=== PATIENT | female | born 2000 | race Caucasian/White ===

== ENCOUNTER 2023-05-29 15:13 | Emergency (ER) | payer OTHER ==
[~2023-05-29] VITALS: Ht 170.2 cm; Wt 79.1 kg
[~2023-05-29 15:13] MED LIST: AMOXICILLIN 8751 TAB PO; BIRTH CONTROL PILLS
[2023-05-29 16:00] LABS: COLLECTION METHOD CLEAN CATCH
[2023-05-29 16:19] LABS: PH 5.5 (5.0-8.5); URINE APPEARANCE Cloudy (CLEAR/HAZY); URINE BACTERIA Moderate /hpf (NONE SEEN); URINE BLOOD 2+ (NEGATIVE); URINE COLOR Yellow (YELLOW); URINE GLUCOSE Negative (NEGATIVE); URINE KETONE Negative (NEGATIVE); URINE NITRATE Positive (NEGATIVE); URINE PROTEIN(semi-quant) TRACE (NEGATIVE); URINE UROBILINOGEN 0.2 E.U/dL (0.2-1.0)
[2023-05-29 17:52] VITALS: TEMP 100.2
[2023-05-29] MEDS ORDERED: Acetaminophen 325 MG TAB PO ONE (18:00)
[2023-05-29] MEDS ORDERED: NS 1,000 ML IV ONE (18:00)
[2023-05-29] MEDS ORDERED: cefTRIAXone 1 G in Water For Injection,Sterile 10 ML IV ONE (18:00)
[2023-05-29] MEDS ORDERED: Ketorolac 15 MG/ML VIAL IV ONE (18:00)
[2023-05-29 18:03] LABS: BASO % 0.5 % (0.0-2.0); EOS % 0.2 % (0.0-4.0); GRAN # 7.2 K/mm3 (1.4-6.5); GRAN % 86.9 % (42.2-75.2); HEMATOCRIT 43.4 % (37.0-47.0); HEMOGLOBIN 14.6 g/dl (12.5-16.0); LYMPH # 0.6 K/mm3 (1.2-3.4); LYMPH % 6.7 % (20.0-51.0); MEAN CELL VOLUME 99 fl (80.0-100.0); MEAN CORPUSCULAR HEMOGLOBIN 33 pg (27-31); MEAN CORPUSCULAR HGB CONC 34 g/dl (33.0-37.0); MEAN PLATELET VOLUME 10.3 fl (7.4-10.4); MONO # 0.4 K/mm3 (0.1-0.6); MONO % 5.3 % (1.7-9.3); PLATELET COUNT 225 K/mm3 (130-400); RED BLOOD COUNT 4.38 M/mm3 (4.10-5.30); REDCELL DISTRIBUTION WIDTH-CV 11.5 % (11.5-14.5)
[2023-05-29 18:15] LABS: ALBUMIN 3.8 gm/dL (3.5-5.0); BILIRUBIN,TOTAL 0.4 mg/dL (0.2-1.2); CALCIUM 9.1 mg/dL (8.4-10.2); CREATININE, serum 0.9 mg/dL (0.57-1.11); POTASSIUM 3.9 mmol/L (3.5-4.5); TOTAL PROTEIN 6.8 gm/dL (6.2-8.1)
[2023-05-29] MEDS ORDERED: VANTIN 200200 MG/TAB PO (19:11)
[2023-05-29 19:21] VITALS: BP 160/75; PULSE 100
== END 2023-05-29 19:23 | disposition home or self-care (01) ==
LOC: COL.ER 15:13
PROVIDERS: Emergency Medicine
DX: N12 Tubulo-interstitial nephritis, not specified as acute or chronic (principal); N39.0 Urinary tract infection, site not specified; M54.50 Low back pain, unspecified; W10.8XXA Fall (on) (from) other stairs and steps, initial encounter
CPT/HCPCS: J0696; J1885; J7030

== ENCOUNTER 2023-05-31 11:38 | Emergency (ER) | payer OTHER ==
[~2023-05-31] VITALS: Ht 170.2 cm; Wt 79.5 kg
[~2023-05-31 11:38] MED LIST changes: +VANTIN 200200 MG/TAB PO
[2023-05-31 11:52] VITALS: TEMP 98.2
[2023-05-31] MEDS ORDERED: Ketorolac 30 MG/ML VIAL IV ONE (12:30)
[2023-05-31 13:05] LABS: COLLECTION METHOD CLEAN CATCH
[2023-05-31 13:23] LABS: BASO # 0.1 K/mm3 (0.0-0.2); BASO % 0.8 % (0.0-2.0); EOS # 0.1 K/mm3 (0.0-0.7); EOS % 1.1 % (0.0-4.0); GRAN # 5.2 K/mm3 (1.4-6.5); GRAN % 71.2 % (42.2-75.2); HEMATOCRIT 39.6 % (37.0-47.0); HEMOGLOBIN 13.5 g/dl (12.5-16.0); LYMPH # 1.2 K/mm3 (1.2-3.4); LYMPH % 15.8 % (20.0-51.0); MEAN CELL VOLUME 100 fl (80.0-100.0); MEAN CORPUSCULAR HEMOGLOBIN 34 pg (27-31); MEAN CORPUSCULAR HGB CONC 34 g/dl (33.0-37.0); MEAN PLATELET VOLUME 10.2 fl (7.4-10.4); MONO # 0.8 K/mm3 (0.1-0.6); PLATELET COUNT 174 K/mm3 (130-400); RED BLOOD COUNT 3.95 M/mm3 (4.10-5.30); REDCELL DISTRIBUTION WIDTH-CV 11.6 % (11.5-14.5)
[2023-05-31 13:30] LABS: ALBUMIN 3.2 gm/dL (3.5-5.0); BILIRUBIN,TOTAL 0.3 mg/dL (0.2-1.2); CALCIUM 9.2 mg/dL (8.4-10.2); CREATININE, serum 0.86 mg/dL (0.57-1.11); TOTAL PROTEIN 6.5 gm/dL (6.2-8.1); URINE APPEARANCE Hazy (CLEAR/HAZY); URINE BLOOD TRACE-LYSED (NEGATIVE); URINE COLOR Straw (YELLOW); URINE GLUCOSE Negative (NEGATIVE); URINE KETONE Negative (NEGATIVE); URINE NITRATE Negative (NEGATIVE); URINE PROTEIN(semi-quant) Negative (NEGATIVE); URINE UROBILINOGEN 0.2 E.U/dL (0.2-1.0)
[2023-05-31 13:57] LABS: URINE RBC 0-2 /hpf (0-2)
[2023-05-31 13:58] LABS: BUDDING YEAST Present (NOT PRESENT)
[2023-05-31] MEDS ORDERED: cefTRIAXone 1 G in Water For Injection,Sterile 10 ML IV ONE (14:30)
[2023-05-31] MEDS ORDERED: CEPHALEXIN500 M1 PO (14:30)
[2023-05-31] MEDS ORDERED: FLEXERIL 1010 MG/TAB PO (14:31)
[2023-05-31] MEDS ORDERED: MEDROL 4MG DOSPA4 MG PO (14:31)
[2023-05-31 15:03] VITALS: BP 109/70; PULSE 51
== END 2023-05-31 15:25 | disposition home or self-care (01) ==
LOC: COL.ER 11:38
PROVIDERS: Physician Assistant
DX: M54.17 Radiculopathy, lumbosacral region (principal); N39.0 Urinary tract infection, site not specified; T36.96XA Underdosing of unspecified systemic antibiotic, initial encounter; Z91.128 Patient's intentional underdosing of medication regimen for other reason
CPT/HCPCS: J0696; J1885